=== PATIENT | female | born 1980 | race Caucasian/White ===

== ENCOUNTER 2021-03-19 01:21 | Emergency (ER) | payer MEDICAID ==
[~2021-03-19] VITALS: Ht 165.1 cm; Wt 84.1 kg
[2021-03-19 01:30] VITALS: BP 119/68
== END 2021-03-19 02:30 | disposition short-term general hospital (02) ==
LOC: EMS 01:22
DX: O60.03 Preterm labor without delivery, third trimester (principal); Z3A.38 38 weeks gestation of pregnancy
CPT/HCPCS: 99285; Z7502